=== PATIENT | male | born 1950 | race Hispanic/Latino ===

== ENCOUNTER → 2017-02-16 | Outpatient (CLI) | payer MEDICARE, OTHER ==
--- NOTE | 2017-02-16 09:41 | Diagnostic Imaging Report ---
PROCEDURE: Frontal and lateral views of the chest. COMPARISON: None. INDICATIONS: COPD FINDINGS: Lines/tubes: Left chest cardiac device with leads projecting over the expected regions of the right atrium and ventricle. Lungs: No parenchymal mass. Right infrahilar airspace opacity. Pleura: There is no pleural effusion or pneumothorax. Heart and mediastinum: The heart and the mediastinum are normal. Atherosclerotic calcifications. Bones: No acute bony abnormality. Degenerative changes of the thoracic spine. IMPRESSION: Right infrahilar airspace opacity may represent atelectasis or developing pneumonia. Dictated by: Johnny Benson M.D. on 02/16/2017 at 9:22 Electronically approved by: Johnny Benson M.D. on 02/16/2017 at 9:22
== END ==
LOC: RESP 08:12
PROVIDERS: ATTEND Internal Medicine Pulmonary Disease
DX: J44.9 Chronic obstructive pulmonary disease, unspecified (principal)
CPT/HCPCS: 71020; 94060; 94727; 94729

== ENCOUNTER → 2017-02-26 | Outpatient (CLI) | payer MEDICARE, OTHER ==
--- NOTE | 2017-02-26 15:05 | Diagnostic Imaging Report ---
PROCEDURE:CT CHEST WITHOUT CONTRAST COMPARISON:Chest x-ray 02/16/17 INDICATIONS:RESTRICTIVE LUNG DISEASE TECHNIQUE: Axial CT images of the chest were obtained without intravenous contrast Coronal and sagittal reformations were made available for review. RADIATION DOSE: Total DLP: 521.3 mGy*cm Estimated effective dose: (DLP x 0.014 x size factor) mSv FINDINGS: Lungs: Diffuse hyperinflation. No evidence of central lobular paraseptal emphysema. Small focus of subsegmental atelectasis/scar in the lingula. Fibrosis: Trace peripheral smooth interstitial thickening in a few areas. No honeycombing. Masses/nodules: A 2 mm calcified granuloma is in the medial right lower lobe. Airways: Diffuse bronchial wall thickening with mild cylindrical bronchiectasis. No filling defects. Pleura:No pleural effusion or pneumothorax. Lymph nodes: No enlarged axillary, supraclavicular lymph nodes. A right paratracheal lymph node with a fatty hilum measures 1.6 x 2.1 cm. No enlarged subcarinal hilar lymph nodes. Thyroid/base of neck: Visualized portions demonstrate no evidence of mass. Heart \T\ Mediastinum:The heart is enlarged. Pacemaker wires terminate in the right atrium and right ventricle. Anterior pericardial effusion measures 5 mm. The esophagus is collapsed. Vessels:The main pulmonary artery measures 4 cm in diameter. The descending aorta measures 3.6 cm in diameter. The descending aorta measures 2.8 cm in diameter. Coronary artery calcifications are present. The innominate artery and left common carotid artery appear to share a common trunk. No significant burden of calcification at the origins. Upper abdomen:The visualized portions of the liver, spleen, pancreas, gallbladder, adrenal glands are remarkable. Low attenuating lesion in the upper pole the right kidney measures 7 mm and is incompletely imaged. A few diverticula are present in the colon. Musculoskeletal: Mild degenerative changes of the spine. No compression deformities. There are no lytic or blastic lesions. CONCLUSION: 1. Diffuse pulmonary hyperinflation suggestive of COPD with trace fibrotic changes. No findings of interstitial pneumonia. 2. Chronic bronchitis. 3. Cardiomegaly. Enlarged main pulmonary artery is suggestive of pulmonary artery hypertension. Dictated by: Elías Parsons M.D. on 02/26/2017 at 15:13 Electronically approved by: Elías Parsons M.D. on 02/26/2017 at 15:13
--- NOTE | 2017-02-26 15:27 | Diagnostic Imaging Report ---
EXAMINATION: Head CT HISTORY: Memory loss COMPARISON: None. TECHNIQUE: Multidetector axial images were obtained without contrast from the foramen magnum to the vertex . The images were reconstructed using brain and bone algorithms. Thin section brain images were reformatted into coronal and sagittal planes. Intravenous contrast: None. Motion/streaking artifact limits the evaluation of the skull base and posterior cranial fossa. FINDINGS: Parenchyma: 1. Few scattered white matter hypodensities, most likely nonspecific chronic microvascular ischemic changes. 2. No mass or hemorrhage. No CT evidence of acute territorial vascular insult. Extra-axial spaces:No abnormal density. No extra-axial fluid collections Brain volume: Normal for age. Ventricles: No hydrocephalus or displacement. Arteries: No density suggestive of thrombus. Dural sinuses: No abnormal density. Extra-axial spaces: No abnormal density. Foramen magnum: No mass, Chiari malformation, or basilar invagination. Sella: No obvious mass. Paranasal/mastoid sinuses: Imaged portions unremarkable. Skull/Scalp: No lytic or blastic lesions. No fractures. IMPRESSION: 1. No acute intracranial abnormalities. 2. Mild chronic microvascular ischemic changes. Signed by: Dr. Charlette Hobbs M.D. on 02/26/2017 3:23 PM
[2017-02-26 16:34] LABS: FOLATE 16.3 ng/mL (7.0-15.4)
== END ==
LOC: CT 13:30
PROVIDERS: ATTEND Specialist
DX: R41.3 Other amnesia (principal); Z86.73 Personal history of transient ischemic attack (TIA), and cerebral infarction without residual deficits
CPT/HCPCS: 36415; 70450; 71250; 82607; 82746; 84443

== ENCOUNTER 2021-02-18 09:21 | Inpatient (IN) | payer MEDICARE, OTHER ==
[~2021-02-18] VITALS: Ht 172.7 cm; Wt 124.7 kg
[2021-02-18 09:54] LABS: BASOPHILS # (AUTO) 0.1 (0.0-0.1); BASOPHILS % 0.8 % (0.0-1.0); EOSINOPHILS # (AUTO) 0.4 (0.0-0.4); EOSINOPHILS % 2.9 % (0.0-6.0); HEMATOCRIT 52.6 % (38.2-49.6); HEMOGLOBIN 17.2 g/dL (14.0-18.0); LYMPHOCYTES # (AUTO) 5.1 (1.0-3.2); LYMPHOCYTES % 41.8 % (18.0-39.1); MEAN CORPUSCULAR HEMOGLOBIN 30.4 pg (28-32); MEAN CORPUSCULAR HGB CONC 32.7 g/dL (31-35); MEAN CORPUSCULAR VOLUME 92.9 fL (81-99); MONOCYTES # (AUTO) 0.9 (0.2-0.8); MONOCYTES % 7.6 % (4.4-11.3); NEUTROPHILS # (AUTO) 5.6 (2.1-6.9); NEUTROPHILS % 45.9 % (38.7-80.0); PLATELET COUNT 208 x10e3/uL (140-360); RED BLOOD COUNT 5.66 x10e6/uL (4.3-5.7); RED CELL DISTRIBUTION WIDTH 13.7 % (11.7-14.4)
[2021-02-18] MEDS ORDERED: SODIUM BICARBONATE 8.4% INJ 50 ML SYR IV STA (09:56)
[2021-02-18 10:05] LABS: CLARITY,URINE CLEAR (CLEAR); COLOR,URINE YELLOW (YELLOW); KETONES,URINE NEGATIVE (NEGATIVE); LEUKOCYTE ESTERASE ,URINE NEGATIVE (NEGATIVE); NITRITE,URINE NEGATIVE (NEGATIVE); PROTEIN,URINE DIPSTICK >=300 (NEGATIVE)
[2021-02-18 10:06] LABS: AMPHETAMINES SCREEN,URINE NEGATIVE (NEGATIVE); BENZODIAZEPINES SCREEN,URINE NEGATIVE (NEGATIVE); PHENCYCLIDINE SCREEN,URINE NEGATIVE (NEGATIVE); URINE UROBILINOGEN 1 mg/dL (0.2 - 1)
[2021-02-18 10:09] LABS: BACTERIA,URINE FEW /HPF; EPITHELIAL CELLS,URINE FEW /LPF; TRANSITIONAL EPI CELLS,URINE RARE
[2021-02-18 10:17] LABS: ALBUMIN 1.4 g/dL (3.5-5.0); ALBUMIN/GLOBULIN RATIO 1.8 (0.8-2.0); ANION GAP 9.1 mmol/L (8-16); CREATININE, SERUM 0.53 mg/dL (0.72-1.25)
[2021-02-18 10:20] LABS: CALCIUM 2.8 mg/dL (8.4-10.2); POTASSIUM 1.1 mmol/L (3.5-5.1)
[2021-02-18 10:21] LABS: SALICYLATE < 5.0 mg/dL (0-30)
[2021-02-18 10:24] LABS: INR 1.01; PROTHROMBIN TIME 14.1 seconds (11.9-14.5)
[2021-02-18 10:25] LABS: PARTIAL THROMBOPLASTIN TIME 28.1 seconds (23.8-35.5)
[2021-02-18 11:00] LABS: ALBUMIN 4.1 g/dL (3.5-5.0); ALBUMIN/GLOBULIN RATIO 1.3 (0.8-2.0); CREATININE, SERUM 1.73 mg/dL (0.72-1.25)
[2021-02-18] MEDS ORDERED: SODIUM CHLORIDE 0.9% 1000ML 1,000 ML IV SCH (11:30)
[2021-02-18] MEDS ORDERED: LASIX20 MG PO (11:58)
[2021-02-18] MEDS ORDERED: METOPROLOL SUCC25 MG PO (11:58)
[2021-02-18] MEDS ORDERED: ELIQUIS5 MG PO (11:58)
[2021-02-18] MEDS ORDERED: AMIODARONE HCL200 MG PO (12:47)
[2021-02-18] MEDS ORDERED: POTASSIUM CITR10 MEQ PO (13:45)
[2021-02-18] MEDS ORDERED: RANEXA500 MG PO (13:45)
[2021-02-18] MEDS ORDERED: ALLOPURINOL300 MG PO (13:45)
[2021-02-18 15:10] VITALS: BP 129/80
[2021-02-18 15:11] VITALS: BP 129/80
[2021-02-18 15:13] VITALS: BP 129/80
[2021-02-18 20:00] VITALS: BP 130/91
[2021-02-18] MEDS: AMIODARONE HCL 200 MG TAB PO SCH (20:30)
[2021-02-18] MEDS: METOPROLOL SUCCINATE 25 MG TAB XL PO SCH (20:30)
[2021-02-18] MEDS: APIXABAN 5 MG TABLET PO SCH (20:30)
[2021-02-18] MEDS: POTASSIUM CITRATE ER 10 MEQ TAB PO SCH (20:30)
[2021-02-18] MEDS ORDERED: ACETAMINOPHEN/CODEINE 300MG - 30MG TAB PO PRN (20:45)
[2021-02-18] MEDS ORDERED: SODIUM CHLORIDE 0.9% 250ML 250 ML IV ONE (20:45)
[2021-02-18 21:00] VITALS: BP 130/91
[2021-02-18] MEDS ORDERED: RANOLAZINE 500 MG TABSR PO SCH (21:00)
[2021-02-18] MEDS ORDERED: ALLOPURINOL 300 MG TAB PO SCH (21:00)
[2021-02-19] VITALS: BP 119/83
[2021-02-19 04:00] VITALS: BP 113/74
[2021-02-19 06:15] LABS: BASOPHILS # (AUTO) 0.1 (0.0-0.1); BASOPHILS % 0.5 % (0.0-1.0); EOSINOPHILS # (AUTO) 0.2 (0.0-0.4); EOSINOPHILS % 1.9 % (0.0-6.0); HEMATOCRIT 48.7 % (38.2-49.6); HEMOGLOBIN 15.9 g/dL (14.0-18.0); LYMPHOCYTES # (AUTO) 1.7 (1.0-3.2); LYMPHOCYTES % 17.9 % (18.0-39.1); MEAN CORPUSCULAR HEMOGLOBIN 30.8 pg (28-32); MEAN CORPUSCULAR HGB CONC 32.6 g/dL (31-35); MEAN CORPUSCULAR VOLUME 94.4 fL (81-99); MONOCYTES # (AUTO) 0.7 (0.2-0.8); NEUTROPHILS # (AUTO) 6.9 (2.1-6.9); NEUTROPHILS % 72.4 % (38.7-80.0); PLATELET COUNT 174 x10e3/uL (140-360); RED BLOOD COUNT 5.16 x10e6/uL (4.3-5.7); RED CELL DISTRIBUTION WIDTH 13.8 % (11.7-14.4)
[2021-02-19 06:33] LABS: ANION GAP 17.5 mmol/L (8-16); CALCIUM 8.4 mg/dL (8.4-10.2); CREATININE, SERUM 1.75 mg/dL (0.72-1.25); POTASSIUM 4.5 mmol/L (3.5-5.1)
[2021-02-19 07:59] VITALS: BP 131/86
[2021-02-19 08:55] VITALS: BP 131/86
[2021-02-19] MEDS: FUROSEMIDE 20 MG TAB PO SCH ×3 (09:00→18:15)
[2021-02-19] MEDS: AMIODARONE HCL 200 MG TAB PO SCH ×2 (10:59→18:18)
[2021-02-19] MEDS: POTASSIUM CITRATE ER 10 MEQ TAB PO SCH ×2 (10:59→18:18)
[2021-02-19] MEDS: METOPROLOL SUCCINATE 25 MG TAB XL PO SCH ×2 (10:59→18:19)
[2021-02-19] MEDS: APIXABAN 5 MG TABLET PO SCH ×2 (10:59→18:15)
[2021-02-19 11:40] VITALS: BP 138/71
[2021-02-19] MEDS ORDERED: LEVETIRACETAM 500 MG TAB PO SCH (12:30)
[2021-02-19 15:52] VITALS: BP 115/81
[2021-02-19] MEDS ORDERED: KEPPRA500 MG PO (18:55)
== END 2021-02-19 19:52 | disposition home or self-care (01) | DRG 101 ==
LOC: ER 09:28 → ERHOLD 11:22 → MED/SURG3 13:46 → OBSVTOIN 02-19 08:39
PROVIDERS: ADMIT Family Medicine; ATTEND Family Medicine
DX: R56.9 Unspecified convulsions (principal); N17.9 Acute kidney failure, unspecified; I25.10 Atherosclerotic heart disease of native coronary artery without angina pectoris; I48.91 Unspecified atrial fibrillation; Z79.01 Long term (current) use of anticoagulants; E78.5 Hyperlipidemia, unspecified; Z87.891 Personal history of nicotine dependence; M19.90 Unspecified osteoarthritis, unspecified site; I11.0 Hypertensive heart disease with heart failure; I50.9 Heart failure, unspecified; Z20.822 Contact with and (suspected) exposure to COVID-19
CPT/HCPCS: 36415; 51700; 70450; 80048; 80053; 80307; 80320; 80329; 81001; 82550; 82948; 84484; 85025; 85610; 85730; 93005; 94799; 99285; G0378; J7030; J7050; U0002

== ENCOUNTER → 2022-12-17 | Day surgery (SDC) | payer MEDICARE, OTHER ==
[2022-12-15 11:24] LABS: BASOPHILS # (AUTO) 0.1 (0.0-0.1); BASOPHILS % 0.8 % (0.0-1.0); EOSINOPHILS # (AUTO) 0.4 (0.0-0.4); EOSINOPHILS % 5.4 % (0.0-6.0); HEMATOCRIT 49.2 % (38.2-49.6); HEMOGLOBIN 16.7 g/dL (14.0-18.0); LYMPHOCYTES # (AUTO) 1.4 (1.0-3.2); LYMPHOCYTES % 19.8 % (18.0-39.1); MEAN CORPUSCULAR HEMOGLOBIN 29.2 pg (28-32); MEAN CORPUSCULAR HGB CONC 33.9 g/dL (31-35); MONOCYTES # (AUTO) 0.5 (0.2-0.8); MONOCYTES % 6.7 % (4.4-11.3); NEUTROPHILS # (AUTO) 4.8 (2.1-6.9); NEUTROPHILS % 67.2 % (38.7-80.0); PLATELET COUNT 185 x10e3/uL (140-360); RED BLOOD COUNT 5.72 x10e6/uL (4.3-5.7); RED CELL DISTRIBUTION WIDTH 14.7 % (11.7-14.4); WHITE BLOOD COUNT 7.21 x10e3/uL (4.8-10.8)
[2022-12-15 11:49] LABS: INR 1.52; PROTHROMBIN TIME 19.2 seconds (11.9-14.5)
[2022-12-15 11:50] LABS: ANION GAP 13.7 mmol/L (8-16); CALCIUM 9.3 mg/dL (8.4-10.2); CHOL/HDL RATIO 5.1 (3.9-4.7); CREATININE, SERUM 2.01 mg/dL (0.72-1.25); PARTIAL THROMBOPLASTIN TIME 44.8 seconds (23.8-35.5); POTASSIUM 4.7 mmol/L (3.5-5.1)
[~2022-12-17] VITALS: Ht 172.7 cm; Wt 89.8 kg
[2022-12-17] VITALS (17 sets, daily range): BP systolic 105–151; BP diastolic 69–108; PULSE 61–74; RESP 11–23; TEMP 96.2–96.6; O2SAT 92–99
[~2022-12-17] MED LIST: ALLOPURINOL300 MG PO; AMIODARONE HCL200 MG PO; ASPIRIN325 MG PO; ELIQUIS5 MG PO; FENTANYL CITRATE/PF 100MCG/2 ML INJ ONE; HEPARIN SOD (PORCINE) 1000 UNIT/ML 30ML ONE; HEPARIN SOD/SOD CHLORIDE 2,000 ML ONE; IOPAMIDOL 370 MG/ML 100 ML INFUS..BTL INJ ONE; KEPPRA500 MG PO; LASIX20 MG PO; LIDOCAINE HCL 2% LOCAL 20 ML VIAL ONE; METOPROLOL SUCC25 MG PO; MIDAZOLAM HCL 2 MG/2 ML VIAL ONE; NITROGLYCERIN/D5W 200 MCG/ML 250 ML ONE; NITROGLYCERIN0.4 MG SL; POTASSIUM CITR10 MEQ PO; RANEXA500 MG PO; SODIUM CHLORIDE 0.9% 1000ML 1,000 ML ONE; VERAPAMIL HCL 2.5 MG/ML 2 ML VIAL ONE
== END | disposition home or self-care (01) ==
LOC: CATH LAB 06:46
PROVIDERS: ATTEND Internal Medicine Cardiovascular Disease
DX: I25.110 Atherosclerotic heart disease of native coronary artery with unstable angina pectoris (principal); R94.39 Abnormal result of other cardiovascular function study; I10 Essential (primary) hypertension; I48.91 Unspecified atrial fibrillation; Z79.02 Long term (current) use of antithrombotics/antiplatelets; J44.9 Chronic obstructive pulmonary disease, unspecified; Z95.0 Presence of cardiac pacemaker; Z01.810 Encounter for preprocedural cardiovascular examination; Z01.812 Encounter for preprocedural laboratory examination; Z01.818 Encounter for other preprocedural examination; Z79.899 Other long term (current) drug therapy
CPT/HCPCS: 36415; 71046; 80048; 80061; 85025; 85610; 85730; 93005; 93454; C1887; J1644; J2001; J2250; J3010; J7030; Q9967; 99152; 99153

== ENCOUNTER 2023-01-23 16:15 | Emergency (ER) | payer MEDICARE ==
[~2023-01-23] VITALS: Ht 172.7 cm; Wt 89.8 kg
[~2023-01-23 16:15] MED LIST changes: -FENTANYL CITRATE/PF 100MCG/2 ML INJ ONE; -HEPARIN SOD (PORCINE) 1000 UNIT/ML 30ML ONE; -HEPARIN SOD/SOD CHLORIDE 2,000 ML ONE; -IOPAMIDOL 370 MG/ML 100 ML INFUS..BTL INJ ONE; -LIDOCAINE HCL 2% LOCAL 20 ML VIAL ONE; -MIDAZOLAM HCL 2 MG/2 ML VIAL ONE; -NITROGLYCERIN/D5W 200 MCG/ML 250 ML ONE; -SODIUM CHLORIDE 0.9% 1000ML 1,000 ML ONE; -VERAPAMIL HCL 2.5 MG/ML 2 ML VIAL ONE
[2023-01-23] MEDS ORDERED: PREDNISONE20 MG PO (16:55)
[2023-01-23] MEDS ORDERED: DEXAMETHASONE SOD PHOS 10 MG/1 ML VIAL IM ONE (17:30)
[2023-01-23 17:52] VITALS: BP 102/79; PULSE 75; RESP 16; TEMP 98.3; O2SAT 98
== END 2023-01-23 17:13 | disposition home or self-care (01) ==
LOC: ER 16:25
DX: M25.571 Pain in right ankle and joints of right foot (principal); M25.561 Pain in right knee; M25.461 Effusion, right knee; I50.9 Heart failure, unspecified; I48.91 Unspecified atrial fibrillation; M10.9 Gout, unspecified; G40.909 Epilepsy, unspecified, not intractable, without status epilepticus; Z95.810 Presence of automatic (implantable) cardiac defibrillator
CPT/HCPCS: 99283; J1100

== ENCOUNTER 2023-06-13 11:05 | Inpatient (IN) | payer MEDICARE ==
[~2023-06-13] VITALS: Ht 172.7 cm; Wt 89.8 kg
[~2023-06-13 11:05] MED LIST changes: +PREDNISONE20 MG PO
[2023-06-13 11:32] LABS: BASOPHILS # (AUTO) 0.1 (0.0-0.1); BASOPHILS % 0.7 % (0.0-1.0); EOSINOPHILS # (AUTO) 0.2 (0.0-0.4); EOSINOPHILS % 2.3 % (0.0-6.0); HEMATOCRIT 51.7 % (38.2-49.6); HEMOGLOBIN 17.6 g/dL (14.0-18.0); LYMPHOCYTES # (AUTO) 1.5 (1.0-3.2); LYMPHOCYTES % 16.2 % (18.0-39.1); MEAN CORPUSCULAR HEMOGLOBIN 30.7 pg (28-32); MEAN CORPUSCULAR VOLUME 90.2 fL (81-99); MONOCYTES # (AUTO) 0.5 (0.2-0.8); NEUTROPHILS # (AUTO) 6.7 (2.1-6.9); NEUTROPHILS % 74.5 % (38.7-80.0); PLATELET COUNT 226 x10e3/uL (140-360); RED BLOOD COUNT 5.73 x10e6/uL (4.3-5.7); RED CELL DISTRIBUTION WIDTH 14.2 % (11.7-14.4); WHITE BLOOD COUNT 9.03 x10e3/uL (4.8-10.8)
[2023-06-13 11:41] LABS: INR 1.41; PROTHROMBIN TIME 18.1 seconds (11.9-14.5)
[2023-06-13 11:42] LABS: PARTIAL THROMBOPLASTIN TIME 35.8 seconds (23.8-35.5)
[2023-06-13 11:53] LABS: ALBUMIN 3.9 g/dL (3.5-5.0); ALBUMIN/GLOBULIN RATIO 1.3 (0.8-2.0); ANION GAP 17.3 mmol/L (8-16); BILIRUBIN,TOTAL 1.4 mg/dL (0.2-1.2); CALCIUM 9.3 mg/dL (8.4-10.2); CREATININE, SERUM 1.86 mg/dL (0.72-1.25); POTASSIUM 4.3 mmol/L (3.5-5.1); TOTAL PROTEIN 6.9 g/dL (6.5-8.1)
[2023-06-13 11:58] LABS: TROPONIN I 0.075 ng/mL (0-0.300)
[2023-06-13] MEDS ORDERED: ONDANSETRON HCL INJ 2MG/ML 2ML 2 MG/ML VIAL IV PRN (13:15)
[2023-06-13] MEDS ORDERED: FUROSEMIDE INJ 10 MG/ML 4 ML VIAL ONE ×2 (14:09)
[2023-06-13] MEDS: FUROSEMIDE INJ 10 MG/ML 4 ML VIAL IV ONE (14:16)
[2023-06-13 14:26] VITALS: BP 147/100; PULSE 70; RESP 16; TEMP 97.6; O2SAT 100
[2023-06-13 14:30] VITALS: BP_SYST 100; PULSE 70; RESP 16; TEMP 97.6; O2SAT 100
[2023-06-13 14:43] LABS: FREE THYROXINE INDEX 2.1362 (1.4-3.8); T3 UPTAKE 27.78 % (22.5-37.0); T4 (THYROXINE) 7.69 ug/dL (4.5-10.9); THYROID STIMULATING HORMONE 4.417 uIU/mL (0.350-4.940)
[2023-06-13] MEDS ORDERED: FLOMAX0.4 MG PO (15:29)
[2023-06-13] MEDS ORDERED: FLONASE ALLERG9.9 ML INH (15:29)
[2023-06-13] MEDS ORDERED: ZETIA10 MG PO (15:29)
[2023-06-13] MEDS ORDERED: NITROGLYCERIN 0.4 MG SUBL SL SCH (16:00)
[2023-06-13 16:04] VITALS: BP 147/100; PULSE 70; RESP 16; TEMP 97.6; O2SAT 100
[2023-06-13] MEDS: APIXABAN 5 MG TABLET PO SCH (17:21)
[2023-06-13] MEDS: ASPIRIN 325 MG TAB PO SCH (17:22)
[2023-06-13] MEDS: AMIODARONE HCL 200 MG TAB PO SCH (17:22)
[2023-06-13] MEDS: FUROSEMIDE 20 MG TAB PO SCH (17:22)
[2023-06-13] MEDS: METOPROLOL SUCCINATE 25 MG TAB XL PO SCH (17:26)
[2023-06-13] MEDS: POTASSIUM CITRATE ER 10 MEQ TAB PO SCH (17:27)
[2023-06-13] MEDS ORDERED: NITROGLYCERIN 0.4 MG SUBL SL PRN (17:30)
[2023-06-13 20:11] LABS: TROPONIN I 0.071 ng/mL (0-0.300)
[2023-06-13 20:15] VITALS: BP 111/82; PULSE 82; RESP 21; TEMP 97.8; O2SAT 100
[2023-06-13] MEDS: ZOLPIDEM TARTRATE 5 MG TAB PO SCH (20:37)
[2023-06-13] MEDS: FAMOTIDINE 20 MG/2 ML VIAL IV SCH (20:37)
[2023-06-13] MEDS: FUROSEMIDE INJ 10 MG/ML 4 ML VIAL IV SCH (20:38)
[2023-06-13 23:52] VITALS: BP 111/82; PULSE 82; RESP 21; TEMP 97.8; O2SAT 100
[2023-06-14] VITALS (8 sets, daily range): BP systolic 99–136; BP diastolic 80–92; PULSE 68–86; RESP 17–20; TEMP 97.3–98.7; O2SAT 95–100
[2023-06-14 05:48] LABS: BASOPHILS % 0.2 % (0.0-1.0); EOSINOPHILS % 0.2 % (0.0-6.0); HEMATOCRIT 57.1 % (38.2-49.6); HEMOGLOBIN 17.9 g/dL (14.0-18.0); LYMPHOCYTES # (AUTO) 1.7 (1.0-3.2); LYMPHOCYTES % 13.5 % (18.0-39.1); MEAN CORPUSCULAR HEMOGLOBIN 30.3 pg (28-32); MEAN CORPUSCULAR HGB CONC 31.3 g/dL (31-35); MEAN CORPUSCULAR VOLUME 96.6 fL (81-99); MONOCYTES # (AUTO) 0.8 (0.2-0.8); NEUTROPHILS # (AUTO) 9.9 (2.1-6.9); NEUTROPHILS % 79.7 % (38.7-80.0); PLATELET COUNT 219 x10e3/uL (140-360); RED BLOOD COUNT 5.91 x10e6/uL (4.3-5.7); RED CELL DISTRIBUTION WIDTH 14.6 % (11.7-14.4); WHITE BLOOD COUNT 12.41 x10e3/uL (4.8-10.8)
[2023-06-14 06:32] LABS: ALBUMIN/GLOBULIN RATIO 1.2 (0.8-2.0); ANION GAP 20.8 mmol/L (8-16); BILIRUBIN,TOTAL 1.6 mg/dL (0.2-1.2); CALCIUM 9.5 mg/dL (8.4-10.2); CREATININE, SERUM 2.25 mg/dL (0.72-1.25); POTASSIUM 4.8 mmol/L (3.5-5.1); TOTAL PROTEIN 7.4 g/dL (6.5-8.1)
[2023-06-14 07:04] LABS: TROPONIN I 0.088 ng/mL (0-0.300)
[2023-06-14] MEDS ORDERED: ASPIRIN 325 MG TAB ONE (09:36)
[2023-06-14] MEDS ORDERED: METOPROLOL SUCCINATE 25 MG TAB XL ONE (09:36)
[2023-06-14] MEDS ORDERED: AMIODARONE HCL 200 MG TAB ONE (09:36)
[2023-06-14] MEDS ORDERED: FUROSEMIDE INJ 10 MG/ML 4 ML VIAL ONE (09:36)
[2023-06-14] MEDS ORDERED: APIXABAN 5 MG TABLET ONE (09:36)
[2023-06-14] MEDS ORDERED: EZETIMIBE 10 MG TAB ONE (09:36)
[2023-06-14] MEDS ORDERED: FUROSEMIDE 20 MG TAB ONE (09:36)
[2023-06-14] MEDS ORDERED: TAMSULOSIN HCL 0.4 MG CAP ONE (09:36)
[2023-06-14] MEDS ORDERED: FAMOTIDINE 20 MG/2 ML VIAL IV ONE (09:36)
[2023-06-14] MEDS: TAMSULOSIN HCL 0.4 MG CAP PO SCH (11:03)
[2023-06-14] MEDS: EZETIMIBE 10 MG TAB PO SCH (11:07)
[2023-06-14] MEDS ORDERED: ONDANSETRON HCL 4 MG ORAL DISINTEGRATING TAB PO PRN (13:30)
[2023-06-14 14:30] LABS: TROPONIN I 0.088 ng/mL (0-0.300)
[2023-06-15] VITALS (8 sets, daily range): BP systolic 90–133; BP diastolic 73–99; PULSE 60–103; RESP 17–22; TEMP 97–98.5; O2SAT 93–100
[2023-06-15 06:01] LABS: ANION GAP 15.4 mmol/L (8-16); CALCIUM 8.7 mg/dL (8.4-10.2); CREATININE, SERUM 1.95 mg/dL (0.72-1.25)
[2023-06-15 06:17] LABS: POTASSIUM 3.4 mmol/L (3.5-5.1)
[2023-06-15] MEDS: AMIODARONE HCL 200 MG TAB PO SCH (08:50)
[2023-06-15] MEDS: METOPROLOL SUCCINATE 25 MG TAB XL PO SCH (08:52)
[2023-06-15] MEDS ORDERED: FUROSEMIDE INJ 10 MG/ML 4 ML VIAL ONE (10:45)
[2023-06-15] MEDS ORDERED: ZOLPIDEM TARTRATE 5 MG TAB ONE (10:45)
[2023-06-15] MEDS ORDERED: ASPIRIN 325 MG TAB ONE (10:45)
[2023-06-15] MEDS ORDERED: APIXABAN 5 MG TABLET ONE (10:45)
[2023-06-15] MEDS ORDERED: FAMOTIDINE 20 MG/2 ML VIAL IV ONE (10:45)
[2023-06-15] MEDS ORDERED: METOPROLOL SUCCINATE 25 MG TAB XL ONE (10:45)
[2023-06-15] MEDS ORDERED: EZETIMIBE 10 MG TAB ONE (10:45)
[2023-06-15] MEDS ORDERED: AMIODARONE HCL 200 MG TAB ONE (10:45)
[2023-06-15] MEDS ORDERED: TAMSULOSIN HCL 0.4 MG CAP ONE (10:45)
[2023-06-16] VITALS (11 sets, daily range): BP systolic 51–132; BP diastolic 27–94; PULSE 68–103; RESP 5–28; TEMP 97.3–99.4; O2SAT 90–100
[2023-06-16] MEDS ORDERED: LORAZEPAM INJ 2 MG/ML VIAL IV PRN (11:30)
[2023-06-16] MEDS ORDERED: AMIODARONE HCL 150 MG/100 ML BAG IV ONE (12:00)
[2023-06-16] MEDS: LORAZEPAM 1 MG TAB PO PRN (12:11)
[2023-06-16] MEDS: AMIODARONE HCL 100 ML IV ONE (14:09)
[2023-06-16] MEDS: AMIODARONE 900MG 500 ML IV SCH (14:42)
[2023-06-16] MEDS: FUROSEMIDE INJ 10 MG/ML 4 ML VIAL IV ONE (17:58)
[2023-06-16] MEDS: POTASSIUM CHLORIDE 20 MEQ TAB CR PO ONE (17:58)
[2023-06-16 19:23] LABS: ANION GAP 17.6 mmol/L (8-16); CALCIUM 8.4 mg/dL (8.4-10.2); CREATININE, SERUM 1.9 mg/dL (0.72-1.25); MAGNESIUM 2.1 MG/DL (1.3-2.1); POTASSIUM 3.6 mmol/L (3.5-5.1)
[2023-06-16] MEDS ORDERED: EZETIMIBE 10 MG TAB ONE (19:23)
[2023-06-16] MEDS ORDERED: AMIODARONE HCL 200 MG TAB ONE (19:23)
[2023-06-16] MEDS ORDERED: METOPROLOL SUCCINATE 25 MG TAB XL ONE (19:23)
[2023-06-16] MEDS ORDERED: ASPIRIN 325 MG TAB ONE (19:23)
[2023-06-16] MEDS ORDERED: TAMSULOSIN HCL 0.4 MG CAP ONE (19:23)
[2023-06-16] MEDS ORDERED: FUROSEMIDE 20 MG TAB ONE (19:23)
[2023-06-16] MEDS ORDERED: CYANOCOBALAMIN INJ 1,000 MCG/ML VIAL ONE (19:23)
[2023-06-16] MEDS ORDERED: FAMOTIDINE 20 MG/2 ML VIAL IV ONE (19:23)
[2023-06-16] MEDS ORDERED: APIXABAN 5 MG TABLET ONE (19:23)
[2023-06-16] MEDS ORDERED: ZOLPIDEM TARTRATE 5 MG TAB ONE (19:23)
[2023-06-16] MEDS ORDERED: DEXTROSE 50% SYRINGE 50 ML IV PRN ×2 (20:30→21:00)
[2023-06-16] MEDS: ACETAMINOPHEN 325 MG TAB PO PRN (21:42)
[2023-06-16] MEDS: INSULIN REGULAR, HUMAN 100 UNIT/1 ML SQ SCH (21:44)
[2023-06-16] MEDS: LEVALBUTEROL HCL SOLN NEBU 1.25 MG/3 ML NEB INH PRN (21:53)
[2023-06-16] MEDS ORDERED: NOREPINEPHRINE 8 MG/D5W 250 ML 250 ML IV SCH (22:00)
[2023-06-17] VITALS (48 sets, daily range): BP systolic 88–164; BP diastolic 61–117; PULSE 32–82; RESP 0–33; TEMP 97.5–97.9; O2SAT 76–100
[2023-06-17 05:57] LABS: BASOPHILS # (AUTO) 0.1 (0.0-0.1); BASOPHILS % 0.5 % (0.0-1.0); EOSINOPHILS % 0.2 % (0.0-6.0); HEMATOCRIT 54.4 % (38.2-49.6); HEMOGLOBIN 17.3 g/dL (14.0-18.0); LYMPHOCYTES # (AUTO) 1.1 (1.0-3.2); LYMPHOCYTES % 10.5 % (18.0-39.1); MEAN CORPUSCULAR HEMOGLOBIN 29.7 pg (28-32); MEAN CORPUSCULAR HGB CONC 31.8 g/dL (31-35); MEAN CORPUSCULAR VOLUME 93.5 fL (81-99); MONOCYTES # (AUTO) 0.7 (0.2-0.8); MONOCYTES % 6.6 % (4.4-11.3); NEUTROPHILS # (AUTO) 8.8 (2.1-6.9); NEUTROPHILS % 81.6 % (38.7-80.0); PLATELET COUNT 209 x10e3/uL (140-360); RED BLOOD COUNT 5.82 x10e6/uL (4.3-5.7); RED CELL DISTRIBUTION WIDTH 14.2 % (11.7-14.4); WHITE BLOOD COUNT 10.77 x10e3/uL (4.8-10.8)
[2023-06-17 07:00] LABS: ALBUMIN 4.1 g/dL (3.5-5.0); ALBUMIN/GLOBULIN RATIO 1.3 (0.8-2.0); BILIRUBIN,TOTAL 1.7 mg/dL (0.2-1.2); CALCIUM 9.7 mg/dL (8.4-10.2); CREATININE, SERUM 2.65 mg/dL (0.72-1.25); MAGNESIUM 2.4 MG/DL (1.3-2.1); TOTAL PROTEIN 7.3 g/dL (6.5-8.1)
[2023-06-17] MEDS: DEXAMETHASONE SOD PHOS 10 MG/1 ML VIAL IV SCH (12:03)
[2023-06-17] MEDS: AMIODARONE 900MG 500 ML IV SCH (12:44)
[2023-06-17] MEDS ORDERED: EZETIMIBE 10 MG TAB ONE (13:03)
[2023-06-17] MEDS ORDERED: FAMOTIDINE 20 MG/2 ML VIAL IV ONE (13:03)
[2023-06-17] MEDS ORDERED: INSULIN REGULAR, HUMAN 100 UNIT/1 ML ONE (13:03)
[2023-06-17] MEDS ORDERED: ACETAMINOPHEN 325 MG TAB ONE (13:03)
[2023-06-17] MEDS ORDERED: APIXABAN 5 MG TABLET ONE (13:03)
[2023-06-17] MEDS ORDERED: ZOLPIDEM TARTRATE 5 MG TAB ONE (13:03)
[2023-06-17] MEDS ORDERED: LORAZEPAM 1 MG TAB ONE (13:03)
[2023-06-17] MEDS ORDERED: LEVALBUTEROL HCL SOLN NEBU 1.25 MG/3 ML NEB ONE (13:03)
[2023-06-17] MEDS ORDERED: FUROSEMIDE 20 MG TAB ONE (13:03)
[2023-06-17] MEDS ORDERED: ASPIRIN 325 MG TAB ONE (13:03)
[2023-06-17] MEDS ORDERED: POTASSIUM CITRATE ER 10 MEQ TAB ONE (13:03)
[2023-06-17] MEDS ORDERED: METOPROLOL SUCCINATE 25 MG TAB XL ONE (13:03)
[2023-06-17] MEDS ORDERED: TAMSULOSIN HCL 0.4 MG CAP ONE (13:03)
[2023-06-17 16:42] LABS: BILIRUBIN,URINE SMALL (NEGATIVE); CLARITY,URINE SL CLOUDY (CLEAR); COLOR,URINE AMBER (YELLOW); GLUCOSE, URINE NEGATIVE (NEGATIVE); KETONES,URINE NEGATIVE (NEGATIVE); LEUKOCYTE ESTERASE ,URINE NEGATIVE (NEGATIVE); NITRITE,URINE NEGATIVE (NEGATIVE); PH,URINE 5.5 (5 - 7); PROTEIN,URINE DIPSTICK 1+ (NEGATIVE); URINE UROBILINOGEN 2 mg/dL (0.2 - 1)
[2023-06-17 17:02] LABS: AMORPHOUS SEDIMENT,URINE MODERATE (FEW); BACTERIA,URINE MODERATE /HPF
[2023-06-18] VITALS (54 sets, daily range): BP systolic 82–116; BP diastolic 51–92; PULSE 36–142; RESP 10–48; TEMP 96.8–98.4; O2SAT 78–100
[2023-06-18 06:45] LABS: BASOPHILS % 0.2 % (0.0-1.0); HEMATOCRIT 43.5 % (38.2-49.6); HEMOGLOBIN 15.2 g/dL (14.0-18.0); LYMPHOCYTES # (AUTO) 0.6 (1.0-3.2); LYMPHOCYTES % 4.6 % (18.0-39.1); MEAN CORPUSCULAR HEMOGLOBIN 30.9 pg (28-32); MEAN CORPUSCULAR HGB CONC 34.9 g/dL (31-35); MEAN CORPUSCULAR VOLUME 88.4 fL (81-99); MONOCYTES # (AUTO) 0.6 (0.2-0.8); MONOCYTES % 4.2 % (4.4-11.3); NEUTROPHILS # (AUTO) 11.9 (2.1-6.9); NEUTROPHILS % 90.7 % (38.7-80.0); PLATELET COUNT 182 x10e3/uL (140-360); RED BLOOD COUNT 4.92 x10e6/uL (4.3-5.7); RED CELL DISTRIBUTION WIDTH 13.7 % (11.7-14.4); WHITE BLOOD COUNT 13.08 x10e3/uL (4.8-10.8)
[2023-06-18 07:27] LABS: ALBUMIN 3.5 g/dL (3.5-5.0); ALBUMIN/GLOBULIN RATIO 1.5 (0.8-2.0); ANION GAP 18.4 mmol/L (8-16); BILIRUBIN,TOTAL 1.8 mg/dL (0.2-1.2); CREATININE, SERUM 2.23 mg/dL (0.72-1.25); POTASSIUM 4.4 mmol/L (3.5-5.1); TOTAL PROTEIN 5.9 g/dL (6.5-8.1)
[2023-06-18] MEDS ORDERED: AMIODARONE HCL 200 MG TAB ONE (08:53)
[2023-06-18] MEDS ORDERED: FUROSEMIDE 20 MG TAB ONE (08:54)
[2023-06-18] MEDS ORDERED: APIXABAN 5 MG TABLET ONE (08:54)
[2023-06-18] MEDS ORDERED: METOPROLOL SUCCINATE 25 MG TAB XL ONE (08:54)
[2023-06-18] MEDS ORDERED: TAMSULOSIN HCL 0.4 MG CAP ONE (08:54)
[2023-06-18] MEDS ORDERED: EZETIMIBE 10 MG TAB ONE (08:54)
[2023-06-18] MEDS ORDERED: ASPIRIN 325 MG TAB ONE (08:55)
[2023-06-18] MEDS ORDERED: DEXAMETHASONE SOD PHOS 10 MG/1 ML VIAL ONE (08:55)
[2023-06-18] MEDS ORDERED: FAMOTIDINE 20 MG/2 ML VIAL IV ONE (08:56)
[2023-06-18] MEDS: AMIODARONE HCL 200 MG TAB PO SCH (09:10)
[2023-06-18] MEDS ORDERED: ACETAMINOPHEN 325 MG TAB ONE (12:05)
[2023-06-18] MEDS ORDERED: NITROGLYCERIN 0.4 MG SUBL ONE (12:13)
[2023-06-18] MEDS: AMIODARONE HCL 200 MG TAB ONE ×4 (18:53→19:46)
[2023-06-18] MEDS: EZETIMIBE 10 MG TAB ONE ×2 (18:54→19:44)
[2023-06-18] MEDS: APIXABAN 5 MG TABLET ONE ×4 (18:54→19:47)
[2023-06-18] MEDS: ASPIRIN 325 MG TAB ONE ×4 (18:54→19:46)
[2023-06-18] MEDS: FUROSEMIDE INJ 10 MG/ML 4 ML VIAL ONE (18:55)
[2023-06-18] MEDS: FAMOTIDINE 20 MG/2 ML VIAL IV ONE ×2 (18:56→19:45)
[2023-06-18] MEDS: METOPROLOL SUCCINATE 25 MG TAB XL ONE ×4 (18:56→19:47)
[2023-06-18] MEDS: TAMSULOSIN HCL 0.4 MG CAP ONE ×2 (18:56→19:44)
[2023-06-18] MEDS: FUROSEMIDE 20 MG TAB ONE ×4 (18:56→19:47)
[2023-06-19] VITALS (32 sets, daily range): BP systolic 100–142; BP diastolic 22–109; PULSE 56–98; RESP 13–33; TEMP 97–98.2; O2SAT 83–100
[2023-06-19] MEDS: ZOLPIDEM TARTRATE 5 MG TAB ONE ×2 (01:38→21:39)
[2023-06-19] MEDS: FAMOTIDINE 20 MG/2 ML VIAL IV ONE ×4 (01:39→21:40)
[2023-06-19 06:39] LABS: BASOPHILS % 0.1 % (0.0-1.0); HEMATOCRIT 45.4 % (38.2-49.6); HEMOGLOBIN 15.2 g/dL (14.0-18.0); LYMPHOCYTES # (AUTO) 0.5 (1.0-3.2); LYMPHOCYTES % 3.3 % (18.0-39.1); MEAN CORPUSCULAR HEMOGLOBIN 30.3 pg (28-32); MEAN CORPUSCULAR HGB CONC 33.5 g/dL (31-35); MEAN CORPUSCULAR VOLUME 90.4 fL (81-99); MONOCYTES # (AUTO) 0.7 (0.2-0.8); MONOCYTES % 4.7 % (4.4-11.3); NEUTROPHILS # (AUTO) 13.4 (2.1-6.9); NEUTROPHILS % 91.3 % (38.7-80.0); PLATELET COUNT 187 x10e3/uL (140-360); RED BLOOD COUNT 5.02 x10e6/uL (4.3-5.7); WHITE BLOOD COUNT 14.63 x10e3/uL (4.8-10.8)
[2023-06-19 07:17] LABS: ANION GAP 18.5 mmol/L (8-16); CALCIUM 9.1 mg/dL (8.4-10.2); CREATININE, SERUM 2.23 mg/dL (0.72-1.25); POTASSIUM 4.5 mmol/L (3.5-5.1)
[2023-06-19] MEDS: AMIODARONE HCL 200 MG TAB ONE (10:39)
[2023-06-19] MEDS: FUROSEMIDE 20 MG TAB ONE (10:39)
[2023-06-19] MEDS: ASPIRIN 325 MG TAB ONE (10:39)
[2023-06-19] MEDS: METOPROLOL SUCCINATE 25 MG TAB XL ONE (10:40)
[2023-06-19] MEDS: APIXABAN 5 MG TABLET ONE (10:40)
[2023-06-19] MEDS: EZETIMIBE 10 MG TAB ONE (10:40)
[2023-06-19] MEDS: TAMSULOSIN HCL 0.4 MG CAP ONE (10:40)
[2023-06-19] MEDS: CYANOCOBALAMIN INJ 1,000 MCG/ML VIAL ONE (18:04)
[2023-06-19] MEDS: LORAZEPAM 1 MG TAB ONE (21:39)
[2023-06-19] MEDS: INSULIN REGULAR, HUMAN 100 UNIT/1 ML ONE (21:40)
[2023-06-19] MEDS: ACETAMINOPHEN 325 MG TAB ONE (21:40)
[2023-06-20] VITALS (9 sets, daily range): BP systolic 105–121; BP diastolic 79–89; PULSE 69–76; RESP 18–20; TEMP 96.5–98.8; O2SAT 94–100
[2023-06-20 02:29] LABS: CREATININE,URINE RANDOM 58.43 mg/dL (63-166); TOTAL PROTEIN, URINE 15.5 mg/dL (1-14)
[2023-06-20] MEDS: LORAZEPAM 0.5 MG TAB PO PRN (19:38)
[2023-06-21] VITALS (10 sets, daily range): BP systolic 104–132; BP diastolic 80–93; PULSE 68–84; RESP 18–21; TEMP 96.1–98.4; O2SAT 96–100
[2023-06-22] VITALS (11 sets, daily range): BP systolic 99–131; BP diastolic 68–97; PULSE 69–79; RESP 18–21; TEMP 97.4–97.8; O2SAT 96–100
[2023-06-22] MEDS: QUETIAPINE FUMARATE 25 MG TAB PO PRN (01:21)
[2023-06-22 06:05] LABS: BASOPHILS % 0.1 % (0.0-1.0); HEMOGLOBIN 15.6 g/dL (14.0-18.0); LYMPHOCYTES # (AUTO) 0.6 (1.0-3.2); LYMPHOCYTES % 4.8 % (18.0-39.1); MEAN CORPUSCULAR HEMOGLOBIN 30.6 pg (28-32); MEAN CORPUSCULAR HGB CONC 33.9 g/dL (31-35); MEAN CORPUSCULAR VOLUME 90.4 fL (81-99); MONOCYTES # (AUTO) 0.9 (0.2-0.8); NEUTROPHILS # (AUTO) 10.6 (2.1-6.9); NEUTROPHILS % 87.5 % (38.7-80.0); PLATELET COUNT 163 x10e3/uL (140-360); RED BLOOD COUNT 5.09 x10e6/uL (4.3-5.7); WHITE BLOOD COUNT 12.06 x10e3/uL (4.8-10.8)
[2023-06-22 06:45] LABS: ALBUMIN 3.5 g/dL (3.5-5.0); ALBUMIN/GLOBULIN RATIO 1.6 (0.8-2.0); ANION GAP 14.7 mmol/L (8-16); BILIRUBIN,TOTAL 1.5 mg/dL (0.2-1.2); CALCIUM 8.7 mg/dL (8.4-10.2); CREATININE, SERUM 1.89 mg/dL (0.72-1.25); POTASSIUM 4.7 mmol/L (3.5-5.1); TOTAL PROTEIN 5.7 g/dL (6.5-8.1)
[2023-06-22 14:12] LABS: ALBUMIN,URINE PEP 52.5 % (.); ALPHA 1 GLOBULIN URINE PEP 8.7 % (.); BETA GLOBULIN URINE PEP 15.2 % (.); GAMMA GLOBULIN URINE PEP 6.6 % (.); M-SPIKE % Not Observed % (Not Observed); PROTEIN URINE PEP 14.9 mg/dL (Not Estab.)
[2023-06-22] MEDS ORDERED: TOPROL XL50 MG PO (17:01)
[2023-06-22] MEDS ORDERED: XOPENEX INH (17:02)
[2023-06-22] MEDS ORDERED: FAMOTIDINE 20 MG TAB PO SCH (21:00)
[2023-06-28 06:58] LABS: SPE ALPHA 1 GLOBULIN 0.2
[2023-06-28 06:59] LABS: SPE ALPHA 2 GLOBULIN 0.6; SPE GAMMA GLOBULIN 0.8
[2023-06-28 07:00] LABS: GLOBULIN TOTAL 2.6
[2023-06-28 07:01] LABS: KAPPA/LAMBDA RATIO 1.01; LAMBDA LIGHT CHAINS 13.8
[2023-06-28 07:02] LABS: A/G RATIO 1.3
== END 2023-06-22 19:05 | disposition home or self-care (01) | DRG 291 ==
LOC: ER 11:10 → ERHOLD 13:22 → MED/SURG2 14:38 → ICU 06-16 13:36 → MED/SURG3 06-19 22:10
PROVIDERS: ADMIT Family Medicine; ATTEND Family Medicine
PROC: 3E0333Z Introduction of Anti-inflammatory into Peripheral Vein, Percutaneous Approach (ICD-10-PCS; principal; 2023-06-17)
DX: I50.23 Acute on chronic systolic (congestive) heart failure (principal); J96.01 Acute respiratory failure with hypoxia; U07.1 COVID-19; N17.9 Acute kidney failure, unspecified; I47.20 Ventricular tachycardia, unspecified; I48.92 Unspecified atrial flutter; I42.9 Cardiomyopathy, unspecified; I48.0 Paroxysmal atrial fibrillation; E11.22 Type 2 diabetes mellitus with diabetic chronic kidney disease; N18.30 Chronic kidney disease, stage 3 unspecified; I25.10 Atherosclerotic heart disease of native coronary artery without angina pectoris; G40.909 Epilepsy, unspecified, not intractable, without status epilepticus; E78.5 Hyperlipidemia, unspecified; N40.0 Benign prostatic hyperplasia without lower urinary tract symptoms; R53.81 Other malaise; F41.9 Anxiety disorder, unspecified; E66.9 Obesity, unspecified; Z68.30 Body mass index [BMI] 30.0-30.9, adult; G47.00 Insomnia, unspecified; M10.9 Gout, unspecified; Z79.82 Long term (current) use of aspirin; Z79.01 Long term (current) use of anticoagulants; Z79.52 Long term (current) use of systemic steroids; Z95.810 Presence of automatic (implantable) cardiac defibrillator; Z87.891 Personal history of nicotine dependence
CPT/HCPCS: 36415; 71045; 74176; 76705; 76770; 80048; 80053; 80061; 81001; 82550; 82570; 82948; 83036; 83735; 83880; 84156; 84165; 84166; 84436; 84443; 84479; 84484; 85025; 85610; 85730; 93005; 93306; 94640; 94799; 96372; 99285; J1100; J1940; J3420; U0002

== ENCOUNTER 2023-10-23 19:08 | Emergency (ER) | payer MEDICARE ==
[~2023-10-23] VITALS: Ht 172.7 cm; Wt 89.8 kg
[~2023-10-23 19:08] MED LIST changes: +FLOMAX0.4 MG PO; +FLONASE ALLERG9.9 ML INH; +TOPROL XL50 MG PO; +XOPENEX INH; +ZETIA10 MG PO
[2023-10-23 19:12] VITALS: PULSE 73; RESP 18; TEMP 98.4; O2SAT 97
[2023-10-23] MEDS: KETOROLAC TROMETHAMINE 60 MG/2 ML VIAL IM STA (19:20)
[2023-10-23] MEDS ORDERED: HYDROCODON-ACE1 EA11 PO (21:25)
[2023-10-23] MEDS ORDERED: ONDANSETRON ODT4 MG PO (21:26)
[2023-10-23] MEDS ORDERED: HYDROCODON-ACE1 EA12 PO (21:38)
== END 2023-10-23 21:31 | disposition home or self-care (01) ==
LOC: ER 19:13
DX: M25.561 Pain in right knee (principal); I50.9 Heart failure, unspecified; I48.91 Unspecified atrial fibrillation; R56.9 Unspecified convulsions; E78.5 Hyperlipidemia, unspecified; M10.9 Gout, unspecified
CPT/HCPCS: 73562; 99283; J1885